=== PATIENT | male | born 1990 | race Caucasian/White ===

== ENCOUNTER 2022-11-23 06:42 | Emergency (ER) | payer OTHER ==
[~2022-11-23] VITALS: Ht 182.9 cm; Wt 86.8 kg
[2022-11-23] MEDS ORDERED: PSEU120T19 PO (07:37)
[2022-11-23] MEDS ORDERED: FLON1SPR NARES (07:37)
[2022-11-23 07:46] VITALS: BP 113/55; TEMP 97.5; O2SAT 99
== END 2022-11-23 07:50 | disposition home or self-care (01) ==
LOC: M ED 06:42
DX: R09.81 Nasal congestion (principal); H73.92 Unspecified disorder of tympanic membrane, left ear; H91.92 Unspecified hearing loss, left ear; F17.200 Nicotine dependence, unspecified, uncomplicated; Z79.899 Other long term (current) drug therapy

== ENCOUNTER 2023-04-13 23:15 | Emergency (ER) | payer OTHER ==
[~2023-04-13] VITALS: Ht 182.9 cm; Wt 85.7 kg
[~2023-04-13 23:15] MED LIST: FLON1SPR NARES; PSEU120T19 PO
[2023-04-13 23:16] VITALS: O2SAT 99
[2023-04-14 03:00] VITALS: BP 134/72; TEMP 98.7
== END 2023-04-14 03:02 | disposition home or self-care (01) ==
LOC: M ED 23:15
DX: N45.1 Epididymitis (principal)

== ENCOUNTER 2025-02-04 09:45 | Emergency (ER) | payer OTHER ==
[~2025-02-04] VITALS: Ht 180.3 cm; Wt 83.2 kg
[2025-02-04 11:39] VITALS: BP 124/74; TEMP 97.5; O2SAT 100
== END 2025-02-04 11:40 | disposition home or self-care (01) ==
LOC: M ED 09:45
DX: S83.207A Unspecified tear of unspecified meniscus, current injury, left knee, initial encounter (principal); W22.8XXA Striking against or struck by other objects, initial encounter; Y92.89 Other specified places as the place of occurrence of the external cause; Y93.89 Activity, other specified; Y99.1 Military activity